=== PATIENT | male | born 1960 | race Caucasian/White ===

== ENCOUNTER → 2021-11-09 08:30 | Outpatient (CLI) | payer OTHER, SELFPAY ==
--- NOTE | 2021-11-09 08:38 | DI.NM.S_ITS ---
PROCEDURE: NM BONE SCAN WHOLE BODY RADIOPHARMACEUTICAL: 20.1 mCi Tc-99m MDP IV. INDICATIONS: Malignant neoplasm of prostate TECHNIQUE: Delayed whole-body scintigrams were obtained approximately 3-4 hours after intravenous injection of radiotracer. Anterior and posterior views were acquired from vertex to feet. Additional left and right oblique views of the pelvis were obtained. COMPARISON: [facility], CT, CT CHEST ABD PEL W CON, 11/09/2021, 9:39. FINDINGS: There is focal increased uptake at the sternomanubrial junction, most likely degenerative in nature. No lesions are identified in skull, clavicles, scapulae, ribs, bony pelvis, and visualized shafts of the long bones. There is low level increased uptake in cervical, thoracic and lumbar spine with distribution indistinguishable from degenerative disc and facet disease; early metastasis to spine could be obscured by degenerative changes. There are foci of increased periarticular activity, compatible with degenerative/arthritic changes. There is a Shannon catheter. IMPRESSION: 1. No definitive scintigraphic findings to suggest osseous metastasis. 2. Increased uptake at the sternomanubrial junction is most likely degenerative in nature. 3. Degenerative/arthritic changes in multiple peripheral joints. Dictated by: Cj Ramírez M.D. on 11/09/2021 at 16:52 Approved by: Cj Ramírez M.D. on 11/09/2021 at 16:54
--- NOTE | 2021-11-09 08:39 | DI.CT.S_ITS ---
PROCEDURE: CT CHEST ABD PEL W CON INDICATIONS: Malignant neoplasm of prostate TECHNIQUE: After the administration of oral and intravenous contrast, axial sections acquired from the supraclavicular neck to the pubic symphysis. Coronal and sagittal reformats were performed. For radiation dose reduction, the following was used: automated exposure control, adjustment of mA and/or kV according to patient size. COMPARISON:[place], [place], [place] BONE SCAN WHOLE BODY, 11/09/2021, 12:46. FINDINGS: Image quality: Excellent. CHEST: Lower Neck: No enlarged lymph nodes. Thyroid: Within normal limits. Axillae: No enlarged lymph nodes. Chest Wall: Unremarkable. Lungs and Airways: Moderate centrilobular and paraseptal emphysema. A 2.0 x 1.1 cm subsolid lesion is seen in the anterior left upper lobe (142/3), although mild respiratory motion artifact is seen at this level. Peripheral reticular ground-glass is seen in the inferior portion of the right middle lobe. Pleura: No pneumothorax or pleural effusions. Heart: Heart size is normal. No pericardial effusion. Mild coronary artery calcifications. Thoracic Vessels: The aorta and pulmonary arteries demonstrate normal size. Mediastinum and Shauna: No enlarged lymph nodes. Esophagus: No wall thickening. No hiatal hernia. ABDOMEN: Liver: Few scattered subcentimeter hypodensities in the liver are too small to characterize but may represent cysts. Gallbladder: Small calcified gallstones are present. No pericholecystic inflammatory changes. Biliary ducts: Unremarkable. Pancreas: Unremarkable. Spleen: Unremarkable. Adrenal Glands: Unremarkable. Kidneys and Ureters: A simple appearing exophytic 2.2 cm cyst is seen at the interpolar region of the left kidney. No hydronephrosis. Stomach and Bowel: Stomach, small bowel loops, and colon are unremarkable. Peritoneum: No abnormal intraperitoneal fluid. No free air. Ventral Wall: No hernia. Abdominal Nodes: No retroperitoneal or mesenteric adenopathy by size criteria. Moderate aortic atherosclerotic calcifications. Vessels: Aorta and inferior vena cava are normal in size. PELVIS: Pelvic Organs: Prostate contains coarse calcifications. Bladder: Bladder is decompressed by a Shannon catheter and contains a small focus of air. Apparent bladder wall thickening may be related to underdistention, chronic bladder outlet obstruction, or cystitis. Pelvic Nodes: No enlarged lymph nodes. Miscellaneous: No inguinal hernias are seen. Bones: No suspicious osteoblastic lesion is seen. Degenerative changes are most prominent at the L5-S1 level. Schmorl's nodes are seen at the superior endplates of T6 and T7. An enhancing soft tissue mass is seen within the right tensor fascia allyssa muscle measuring 3.1 x 2.4 cm in axial dimensions (125/2) by 3.5 cm craniocaudal. No additional focus of abnormal intramuscular enhancement is seen. IMPRESSION: 1. Ovoid enhancing mass within the right tensor fascia allyssa muscle is of uncertain etiology. This could represent solitary intramuscular metastasis, but other benign and malignant etiologies are not excluded. Consider tissue sampling for further evaluation. 2. Subsolid pulmonary nodule versus focal fibrosis or infectious/inflammatory process at the peripheral anterior aspect of the left upper lobe measuring 2 x 1.1 cm. Additionally, reticulations and mild ground-glass density are seen at the inferior aspect of the right middle lobe, which could represent fibrosis versus an infectious or inflammatory process. Consider follow-up CT chest in 3-6 months. 3. No suspicious osteoblastic lesion. No abnormal lymphadenopathy in the chest, abdomen, or pelvis. 4. Bladder is decompressed by a Shannon catheter. Diffuse bladder wall thickening may be secondary to underdistention, chronic bladder outlet obstruction, and/or cystitis. Dictated by: Damion Huang M.D. on 11/09/2021 at 14:57 Approved by: Damion Huang M.D. on 11/09/2021 at 15:55
[2021-11-09 09:26] LABS: Alanine Aminotransferase 16 IU/L (<50); Albumin 4.3 g/dL (3.5-5.0); Albumin Globulin Ratio 1.3 (1.0-2.8); Alkaline Phosphatase 69 U/L (38-126); Aspartate Aminotransferase 23 IU/L (17-59); BUN Creatinine Ratio 15.2 (6-22); Bilirubin Total 0.4 mg/dL (0.2-1.3); Blood Urea Nitrogen 15 mg/dL (9-20); Calcium 9.4 mg/dL (8.4-10.2); Carbon Dioxide 25 mmol/L (22-32); Chloride 104 mmol/L (98-107); Estimated Glomerular Filt Rate > 60 mL/min (>60); Globulin 3.2 g/dL (1.7-4.1); Glucose 101 mg/dL (80-110); HEMOLYSIS < 15 (0-50); Potassium 4.2 mmol/L (3.4-5.1); Sodium 136 mmol/L (137-145); Total Protein 7.5 g/dL (6.3-8.2)
== END ==
PROVIDERS: Referring Provider Urology; Visit Provider Urology
DX: C61 Malignant neoplasm of prostate (principal); R93.7 Abnormal findings on diagnostic imaging of other parts of musculoskeletal system; R91.8 Other nonspecific abnormal finding of lung field
CPT/HCPCS: 36415; 71260; 74177; 78306; 80053; A9503; Q9967

== ENCOUNTER → 2022-01-27 12:27 | Outpatient (CLI) | payer OTHER, SELFPAY ==
--- NOTE | 2022-01-27 | DI.MRI.S_ITS ---
PROCEDURE: MR PELVIS WO/W CON INDICATIONS: Malignant neoplasm of prostate TECHNIQUE: Coronal HASTE, axial T1 FSE with fat saturation, 3-plane nonbreath-hold T2 FSE. After the administration of contrast, dynamic axial, delayed axial and coronal VIBE or 2-D FLASH with fat saturation through the pelvis. Optional diffusion weighted imaging and ADC may be performed. COMPARISON: [facility], CT, CT CHEST ABD PEL W CON, 11/09/2021, 9:39. [facility], [place], [place] BONE SCAN WHOLE BODY, 11/09/2021, 12:46. FINDINGS: Image quality: Diffusion weighted and dynamic contrast enhanced images are diagnostic. Prostate: Gland size is 4.2 x 3.0 x 3.4 cm; ellipsoid gland volume is 22 mL. Signal abnormality is present throughout much of the prostate gland with large regions of homogeneous T2 hypointensity and decreased conspicuity of zonal anatomy. Lesion #1: Size: Difficult to measure due to curvilinear configuration, approximately 3.2 x 0.8 cm measured in the axial plane (series 25, image 12) Location: Right anterior, posterolateral, posterior medial peripheral zone and left posterior medial peripheral zone, base to apex. Possible extension into the transition zone. T2 signal: Homogeneously T2 hypointense DWI/ADC signal: Hypointense on ADC images with corresponding DWI hyperintensity DCE: Positive TORRES: An ovoid region of heterogeneous signal is present along the right posterolateral aspect of the prostate gland (5/11) suspicious for extracapsular extension of tumor. This finding abuts the right aspect of the puborectalis muscle. Extracapsular extension also likely present at the left posterior medial peripheral zone at the gland base (5/9). These areas are near the neurovascular bundles. Seminal vesicle invasion: Suspected involvement of the seminal vesicles near the ejaculatory ducts bilaterally (7/15). PI-RADS: T2 signal - 5; ADC - 5; DCE - positive; Overall score: PI-RADS 5. Genitourinary system: A Shannon catheter is present in the bladder. Distal ureters are non distended. Bowel and peritoneum: No pathologic free pelvic fluid. Inferior colon and small bowel loops are normal in caliber. Nodes and vessels: No pelvic adenopathy by size criteria . marked Narrowing of the left common iliac artery just downstream to the aortic bifurcation. Soft tissues: Nonspecific enhancing mass in the right tensor fascia allyssa muscle redemonstrated. Bones: No definite lesions to suggest metastases. IMPRESSION: 1. Signal abnormality is present throughout much of the prostate gland, overall findings compatible with PI-RADS category 5. Similar T2 findings can be seen in the setting of post treatment change however and clinical correlation is recommended. 2. Appearance is suspicious for presence of extracapsular extension and seminal vesicle involvement as above. 3. No definite suspicious lymph nodes identified in the imaged pelvis. 4. Redemonstrated nonspecific enhancing mass in the right tensor fascia allyssa muscle, nonspecific. Metastatic disease or primary benign or malignant mass are possible. Dictated by: Damion Lincoln M.D. on 01/27/2022 at 15:53 Approved by: Damion Lincoln M.D. on 01/27/2022 at 16:30
== END ==
PROVIDERS: Referring Provider Urology; Visit Provider Urology
DX: C61 Malignant neoplasm of prostate (principal); R22.41 Localized swelling, mass and lump, right lower limb
CPT/HCPCS: 72197; A9579